=== PATIENT | male | born 1970 | race African-American/Black ===

== ENCOUNTER 2016-08-16 22:50 | Emergency (ER) | payer OTHER ==
--- NOTE | ~2016-08-16 | EKG ---
PATIENT: ELIZABETH POWERS UNIT #: [id number] Ventricular Rate: 93 BPM Atrial Rate: 93 BPM P-R Interval: 188 ms QRS Duration: 76 ms Q-T Interval: 334 ms QTC Calculation(Bezet): 415 ms P [place]: 60 degrees Calculated R [place]: 62 degrees Calculated T [place]: 41 degrees Diagnosis Line: Normal sinus rhythm Diagnosis Line: ST elevation, consider early repolarization, Diagnosis Line: pericarditis, or injury Diagnosis Line: Abnormal ECG Diagnosis Line: When compared with ECG of 14-OCT-2015 00:51, Diagnosis Line: No significant change was found Diagnosis Line: Confirmed by LISSET IBARRA MD ([id number]) on 08/16/2016 Diagnosis Line: 11:11:20 PM INTERPRETING MD: STACEY GOMEZ
[2016-08-16 20:27] LABS: BASOPHIL# 0.1 X10e3 (0-0.3); EOSINOPHIL# 0.2 X10e3 (0-0.7); HEMATOCRIT 40.9 % (38.0-50.0); HEMOGLOBIN 13.8 gm/dL (13.0-16.0); LYMPHOCYTE# 1.9 X10e3 (1.0-3.5); LYMPHOCYTE% 35.6 % (17.0-45.0); MEAN CELL VOLUME 86.8 FL (83-96); MEAN CORPUSCULAR HEMOGLOBIN 29.2 PG (28-34); MEAN CORPUSCULAR HGB CONC 33.7 g/dL (30-36); MEAN PLATELET VOLUME 10.2 FL (6.5-11.5); MONOCYTE# 0.4 X10e3 (0-1.0); MONOCYTE% 7.2 % (3.0-12.0); NEUTROPHIL# 2.8 X10e3 (1.5-7.1); NEUTROPHIL% 53.2 % (40-75); PLATELET COUNT 192 X10e3 (140-420); RED BLOOD COUNT 4.71 X10e (3.90-5.60); WHITE BLOOD COUNT 5.2 X10e3 (4.0-10.5)
[2016-08-16 20:28] LABS: DIFF IND NO
[2016-08-16 20:50] LABS: ALBUMIN SERUM 4.1 g/dL (3.5-5.0); ALKALINE PHOSPHATASE 76 U/L (32-92); ALT (SGPT) 30 U/L (10-40); AST (SGOT) 24 U/L (10-42); BILIRUBIN, DIRECT <0.1 mg/dL (0.0-0.2); BILIRUBIN,INDIRECT 0.3 mg/dL (0.0-0.9); BILIRUBIN,TOTAL 0.4 mg/dL (0.2-2.0); BLOOD UREA NITROGEN 23 mg/dL (9-23); BUN/CREATININE RATIO 15.33; CALCIUM SERUM 9.6 mg/dL (8.4-10.2); CARBON DIOXIDE 26 mmol/L (22-31); CHLORIDE 95 mmol/L (100-111); CREATININE SERUM 1.5 mg/dL (0.6-1.4); GLOM FILT RATE Estimated 64.3 mL/min (>60); GLUCOSE FASTING 462 mg/dL (70-110); POTASSIUM 4.2 mmol/L (3.5-5.1); PROTEIN TOTAL SERUM 7.4 g/dL (6.0-8.3); SODIUM 132 mmol/L (135-145)
[~2016-08-16 22:50] MED LIST: ALBUTEROL17 GM INH; AMBIEN PO; ASPIRIN81 M1 PO; ATIVAN0.5 M1 PO; BACTRIM DS TABL1 TAB PO; DOCUSATE SODIU100 MG PO; DULOXETINE HCL60 MG PO; E-MYCIN250 MG PO; FAMOTIDINE PO; FLAGYL PO; FLEXERIL10 M1 PO; GABAPENTIN300 M2 PO; GLIPIZIDE10 MG PO; GLUCOPHAGE XR500 MG PO; GLUCOPHAGE500 MG PO; GLUCOTROL PO; GLUCOTROL10 MG PO; GLUCOTROL5 MG/BOTTL PO; HYDROCHLOROTHIA25 MG PO; HYDROCODON-ACE1 EAC7 PO; IBUPROFEN800 MG PO; LEVAQUIN PO; LEVAQUIN750 MG PO; LEVEMIR SUBQ; LISINOPRIL-HCTZ1 T15 PO; LISINOPRIL10 MG PO; LISINOPRIL20 MG PO; LOPRESSOR PO; LORTAB 5/500 TA1 TA1 PO; METFORMIN PO; MILK OF MAGNESIA PO; MORGIDOX100 MG PO; MOTRIN400 MG PO; NAPROSYN500 MG PO; NICOTINE TRANSD21 MG EXT; NORVASC PO; PERCOCET5/325 PO; PRAMOSONE 2.528.4 G1 TOP; PRINIVIL10 MG PO; SYMBICORT INH; SYMBICORT80 INH; TYLENOL325 M1 PO; VASERETIC 5-12.1 TAB PO; VICODIN 5/500 T1 TAB PO; VITAMIN D400 UNI2 PO; ZESTORETIC 10-1 EACH PO
== END 2016-08-16 23:57 | disposition left against medical advice (07) ==
LOC: CED 22:50
DX: Z53.21 Procedure and treatment not carried out due to patient leaving prior to being seen by health care provider (principal)
CPT/HCPCS: 80048; 80076; 85025